=== PATIENT | male | born 2000 | race Caucasian/White ===

== ENCOUNTER 2024-01-06 19:10 | Emergency (ER) | payer OTHER ==
[~2024-01-06 19:10] MED LIST: NS 1,000 ML IV ONE; diphenhydrAMINE 50 MG/ML 1 ML VIAL IV ONE
[2024-02-26 10:40] LABS: BASO # 0.02 K/mm3 (0.02-0.10); EOS # 0.02 K/mm3 (0.04-0.40); EOS % 0.2 % (0.0-4.0); HEMATOCRIT 44.5 % (42.0-52.0); HEMOGLOBIN 15.2 g/dL (13.5-18.0); LYMPH# 2.81 K/mm3 (1.50-4.00); MEAN CELL VOLUME 88 fl (78-100); MEAN CORPUSCULAR HEMOGLOBIN 30 pg (27-31); MEAN CORPUSCULAR HGB CONC 34 g/dL (33-37); MEAN PLATELET VOLUME 9.1 fl (7.4-10.4); NEU # 7.84 K/mm3 (1.40-6.50); PLATELET COUNT 327 K/mm3 (130-400); RED BLOOD COUNT 5.06 M/mm3 (4.20-5.60); RED CELL DISTRIBUTION WIDTH 12.7 % (11.5-14.5); WHITE BLOOD COUNT 11.5 K/mm3 (4.8-10.8)
[2024-02-26 10:49] LABS: ALBUMIN 4.8 g/dL (3.5-5.0); CALCIUM 10.7 mg/dL (8.3-10.5); TOTAL BILIRUBIN 1.4 mg/dL (0.2-1.2); TOTAL PROTEIN 7.9 g/dL (6.4-8.3)
== END 2024-01-06 21:12 | disposition home or self-care (01) ==
LOC: ED 19:10
PROVIDERS: Physician Assistant
DX: R11.2 Nausea with vomiting, unspecified (principal)
CPT/HCPCS: J1200; J2765; J7030

== ENCOUNTER 2024-03-14 11:12 | Emergency (ER) | payer OTHER ==
[2024-03-14] MEDS ORDERED: PROTONIX20 M1 PO (11:32)
[2024-03-14] MEDS ORDERED: IBU800 M2 PO (11:32)
[2024-03-14] MEDS ORDERED: NEURONTIN300 M1 PO (11:32)
[2024-03-14] MEDS ORDERED: TADALAFIL2.5 MG PO (11:33)
[2024-03-14] MEDS ORDERED: NS 1,000 ML IV SCH (12:15)
[2024-03-14 12:22] LABS: BASO # 0.02 K/mm3 (0.02-0.10); HEMATOCRIT 41.4 % (42.0-52.0); HEMOGLOBIN 14.1 g/dL (13.5-18.0); LYMPH# 0.86 K/mm3 (1.50-4.00); MEAN CELL VOLUME 89 fl (78-100); MEAN CORPUSCULAR HEMOGLOBIN 30 pg (27-31); MEAN CORPUSCULAR HGB CONC 34 g/dL (33-37); MEAN PLATELET VOLUME 9.4 fl (7.4-10.4); MONO # 0.44 K/mm3 (0.20-0.80); NEU # 10.47 K/mm3 (1.40-6.50); PLATELET COUNT 282 K/mm3 (130-400); RED BLOOD COUNT 4.68 M/mm3 (4.20-5.60); RED CELL DISTRIBUTION WIDTH 12.6 % (11.5-14.5); WHITE BLOOD COUNT 11.8 K/mm3 (4.8-10.8)
[2024-03-14 12:30] LABS: CALCIUM 10.3 mg/dL (8.3-10.5)
[2024-03-14 12:31] LABS: TOTAL PROTEIN 8.2 g/dL (6.4-8.3)
[2024-03-14 12:33] LABS: TOTAL BILIRUBIN 1.1 mg/dL (0.2-1.2)
[2024-03-14 15:24] LABS: URINE APPEARANCE CLEAR (CLEAR); URINE BILIRUBIN NEGATIVE (NEGATIVE); URINE BLOOD NEGATIVE (NEGATIVE); URINE COLOR YELLOW (YELLOW); URINE GLUCOSE NEGATIVE (NEGATIVE); URINE KETONE NEGATIVE (NEGATIVE); URINE LEUKOCYTE ESTERASE NEGATIVE (NEGATIVE); URINE NITRATE NEGATIVE (NEGATIVE); URINE PROTEIN(semi-quant) 2+ (NEGATIVE); URINE WBC 0-1 /hpf (0-3)
[2024-03-14 15:25] LABS: URINE MUCUS PRESENT (NOT PRESENT)
[2024-03-14 16:26] VITALS: BP 128/70
== END 2024-03-14 16:29 | disposition home or self-care (01) ==
LOC: ED 11:12
PROVIDERS: Family Medicine
DX: R11.2 Nausea with vomiting, unspecified (principal); F12.10 Cannabis abuse, uncomplicated
CPT/HCPCS: J7030